=== PATIENT | female | born 1940 | race Two or more races ===

== ENCOUNTER 2017-12-04 14:22 | Emergency (ER) | payer OTHER, MEDICAID ==
[~2017-12-04] VITALS: Ht 152.4 cm; Wt 43.5 kg
[2017-12-04 16:33] LABS: Urine Bacteria NONE SEEN /hpf (None Seen); Urine Blood TRACE /uL (Negative); Urine Specific Gravity 1.024 (1.001-1.035); Urine WBC 1 /hpf (0 - 5)
[2017-12-04 18:21] VITALS: BP 144/74
== END 2017-12-04 19:19 | disposition home or self-care (01) ==
LOC: ER 14:28
DX: N39.0 Urinary tract infection, site not specified (principal)
CPT/HCPCS: 81001

== ENCOUNTER 2020-04-15 15:45 | Inpatient (IN) | payer OTHER, MEDICAID ==
[~2020-04-15] VITALS: Ht 152.4 cm; Wt 42.6 kg
[2020-04-15] MEDS ORDERED: SODIUM CHLORIDE 0.9% 500 ML IVB ONE (18:15)
[2020-04-15] MEDS ORDERED: NITROGLYCERIN 0.4 MG SL TAB SL PRN (21:15)
[2020-04-15] MEDS ORDERED: MORPHINE SULFATE INJECTION 2 MG/ML SYRG IV PRN (21:15)
[2020-04-15 21:24] LABS: Basophils # (auto) 0 10 ^3/uL (0-0.2); Basophils % (auto) 0.1 % (0.0-2.0); Eosinophils # (auto) 0 10 ^3/uL (0-0.8); Hematocrit 33.5 % (36.0-46.0); Hemoglobin 11.3 g/dL (12.2-16.2); Lymphocytes # (auto) 0.3 10 ^3/uL (0.4-5.4); Lymphocytes % (auto) 2.2 % (10.0-50.0); Mean Corpuscular Hemoglobin 30.5 pg (28.0-32.0); Mean Corpuscular Hgb Conc. 33.7 g/dL (32.0-36.0); Mean Corpuscular Volume 90.7 fL (80.0-100.0); Monocytes # (auto) 0.7 10 ^3/uL (0-1.3); Monocytes % (auto) 4.9 % (0.0-12.0); Neutrophils # (auto) 13.2 10 ^3/uL (1.6-8.6); Neutrophils % (auto) 92.8 % (37.0-80.0); White Blood Cell 14.2 10^3/uL (4.4-10.8)
[2020-04-15] MEDS ORDERED: SOD CHL 0.45% 1,000 ML IV ONE (21:30)
[2020-04-15] MEDS ORDERED: ONDANSETRON HCL 4 MG/2 ML VIAL IV PRN (21:30)
[2020-04-15 21:31] LABS: Albumin 3.3 g/dL (3.4-5.0); Anion Gap 5 (5-15); Blood Urea Nitrogen 25 mg/dL (7-18); Calcium 8.4 mg/dL (8.5-10.1); Carbon Dioxide 26 mmol/L (21-32); Chloride 110 mmol/L (98-107); Glucose 142 mg/dL (74-106); Potassium 4.3 mmol/L (3.5-5.1); Sodium 141 mmol/L (136-145)
[2020-04-15 21:49] LABS: Alanine Aminotransferase 58 U/L (13-56); Alkaline Phosphatase 111 U/L (45-117); Aspartate Aminotransferase 57 U/L (15-37); BUN/Creatinine Ratio 40.3; Bilirubin, Total 0.3 mg/dL (0.2-1.0); GFR African American 119 mL/min; GFR Non-African American 98 mL/min; Total Protein 6.3 g/dL (6.4-8.2)
[2020-04-15 22:03] LABS: INR 1.05 (0.9-1.15); Partial Thromboplastin Time 23.3 sec (23.0-31.2)
[2020-04-16] MEDS: MORPHINE SULFATE INJECTION 2 MG/ML SYRG IV PRN (00:34)
[2020-04-16 07:56] LABS: Basophils # (auto) 0 10 ^3/uL (0-0.2); Basophils % (auto) 0.3 % (0.0-2.0); Eosinophils # (auto) 0 10 ^3/uL (0-0.8); Eosinophils % (auto) 0.1 % (0.0-7.0); Hemoglobin 11.4 g/dL (12.2-16.2); Lymphocytes # (auto) 0.8 10 ^3/uL (0.4-5.4); Lymphocytes % (auto) 7.6 % (10.0-50.0); Mean Corpuscular Hemoglobin 31.3 pg (28.0-32.0); Mean Corpuscular Hgb Conc. 34.6 g/dL (32.0-36.0); Mean Corpuscular Volume 90.5 fL (80.0-100.0); Monocytes # (auto) 0.6 10 ^3/uL (0-1.3); Monocytes % (auto) 5.8 % (0.0-12.0); Neutrophils # (auto) 8.5 10 ^3/uL (1.6-8.6); Neutrophils % (auto) 86.2 % (37.0-80.0); Red Blood Cells 3.65 10^6/uL (4.0-5.20); White Blood Cell 9.9 10^3/uL (4.4-10.8)
[2020-04-16 08:16] LABS: Albumin 3.2 g/dL (3.4-5.0); Calcium 8.4 mg/dL (8.5-10.1); Potassium 4.5 mmol/L (3.5-5.1)
[2020-04-16 08:27] LABS: BUN/Creatinine Ratio 29.2; Bilirubin, Total 0.6 mg/dL (0.2-1.0); Total Protein 6.6 g/dL (6.4-8.2)
[2020-04-16] MEDS ORDERED: SUCCINYLCHOLINE CHLORIDE 20 MG/ML 10ML VIAL IV ONE (11:03)
[2020-04-16] MEDS ORDERED: ceFAZolin 1GM/50ML 50 ML IV ONE (11:34)
[2020-04-16] MEDS ORDERED: MIDAZOLAM HCL 2MG/2ML 2ml VIAL (1mg/ml) ONE (11:56)
[2020-04-16] MEDS ORDERED: ETOMIDATE (2MG/ML) 20ML VIAL IV ONE (11:57)
[2020-04-16] MEDS ORDERED: ROCURONIUM 10MG/ML 10ML VIAL IV ONE (11:58)
[2020-04-16] MEDS ORDERED: fentaNYL CITRATE 100 MCG/2 ML VL ONE (12:21)
[2020-04-16] MEDS ORDERED: ONDANSETRON HCL 4 MG/2 ML VIAL IV PRN (12:30)
[2020-04-16] MEDS ORDERED: HYDROmorphone HCL 2 MG/ML VL IV PRN (12:30)
[2020-04-16] MEDS ORDERED: NALOXONE HCL 0.4 MG/ML VIAL IV PRN (12:30)
[2020-04-16] MEDS ORDERED: STERILE WATER 10 ML ONE (12:54)
[2020-04-16] MEDS ORDERED: ePHEDrine SULFATE 50 MG/ML AMP ONE (12:54)
[2020-04-16] MEDS ORDERED: BUPIVACAINE 0.25% INJ 50ML VIAL ONE (13:00)
[2020-04-16] MEDS ORDERED: GLYCOPYRROLATE 0.2 MG/ML 1ML VIAL ONE (13:11)
[2020-04-16] MEDS ORDERED: NEOSTIGMINE 1 MG/ML INJ (10mg/10ML VIAL) ONE (13:11)
[2020-04-16] MEDS ORDERED: HYDROmorphone HCL 2 MG/ML VL ONE (15:49)
[2020-04-16] MEDS: ceFAZolin 1GM/50ML 50 ML IV SCH ×2 (16:20→18:59)
[2020-04-16] MEDS: LACTATED RINGER'S 1,000 ML IV SCH ×2 (18:03→23:15)
[2020-04-16 22:00] VITALS: BP 108/69
[2020-04-17] MEDS: ceFAZolin 1GM/50ML 50 ML IV SCH (00:35)
[2020-04-17 09:00] VITALS: BP 112/56
[2020-04-17] MEDS: LACTATED RINGER'S 1,000 ML IV SCH ×2 (09:15→19:15)
[2020-04-17] MEDS: ENOXAPARIN SOD 40 MG/0.4 ML SYRINGE SC SCH (10:16)
[2020-04-17] MEDS: MORPHINE SULFATE INJECTION 2 MG/ML SYRG IV PRN ×2 (10:28→18:56)
[2020-04-17 10:33] LABS: Hematocrit 26.9 % (36.0-46.0); Hemoglobin 9.1 g/dL (12.2-16.2)
[2020-04-17 10:38] LABS: Albumin 2.7 g/dL (3.4-5.0); Calcium 8.3 mg/dL (8.5-10.1); Potassium 4.2 mmol/L (3.5-5.1)
[2020-04-17 10:42] LABS: BUN/Creatinine Ratio 24.5; Bilirubin, Total 0.6 mg/dL (0.2-1.0); Total Protein 6.1 g/dL (6.4-8.2)
[2020-04-17 13:00] VITALS: BP 111/65
[2020-04-17 17:00] VITALS: BP 115/70
[2020-04-17 22:00] VITALS: BP 110/69
[2020-04-18] MEDS: LACTATED RINGER'S 1,000 ML IV SCH ×2 (04:50→15:15)
[2020-04-18 05:09] VITALS: BP 106/70
[2020-04-18 06:02] LABS: Hematocrit 23.1 % (36.0-46.0); Hemoglobin 7.9 g/dL (12.2-16.2)
[2020-04-18] MEDS: ENOXAPARIN SOD 40 MG/0.4 ML SYRINGE SC SCH (09:35)
[2020-04-18] MEDS: MORPHINE SULFATE INJECTION 2 MG/ML SYRG IV PRN (09:35)
[2020-04-18 17:00] VITALS: BP 104/61
[2020-04-18 22:00] VITALS: BP 115/50
[2020-04-18] MEDS ORDERED: LACTULOSE 20Gm/30ML SOLN PO ONE (22:00)
[2020-04-19] MEDS: LACTATED RINGER'S 1,000 ML IV SCH (01:06)
[2020-04-19] MEDS: MORPHINE SULFATE INJECTION 2 MG/ML SYRG IV PRN (05:12)
[2020-04-19 05:55] VITALS: BP 113/62
[2020-04-19 06:05] LABS: Hemoglobin 7.2 g/dL (12.2-16.2)
[2020-04-19] MEDS: ENOXAPARIN SOD 30 MG/0.3 ML SYRINGE SC SCH (08:50)
[2020-04-19] MEDS ORDERED: FER325T PO (09:23)
[2020-04-19] MEDS ORDERED: ASCO500T11 PO (09:23)
[2020-04-19] MEDS ORDERED: ENOXAPARIN SOD 30 MG/0.3 ML SYRINGE SC SCH (10:00)
[2020-04-19] MEDS: FERROUS SULFATE 325mg EC TAB PO SCH ×3 (11:15→21:38)
[2020-04-19] MEDS: ASCORBIC ACID 500 MG TAB PO SCH ×2 (11:15→21:38)
[2020-04-19 17:00] VITALS: BP 96/56
[2020-04-19 17:36] LABS: Basophils # (auto) 0 10 ^3/uL (0-0.2); Eosinophils # (auto) 0.1 10 ^3/uL (0-0.8); Eosinophils % (auto) 1.4 % (0.0-7.0); Hemoglobin 7.8 g/dL (12.2-16.2); Lymphocytes # (auto) 1.2 10 ^3/uL (0.4-5.4); Lymphocytes % (auto) 14.5 % (10.0-50.0); Monocytes # (auto) 0.6 10 ^3/uL (0-1.3)
[2020-04-19 17:38] LABS: Basophils % (auto) 0.5 % (0.0-2.0); Hematocrit 22.8 % (36.0-46.0); Monocytes % (auto) 7.3 % (0.0-12.0); Neutrophils # (auto) 6.3 10 ^3/uL (1.6-8.6); Neutrophils % (auto) 76.3 % (37.0-80.0); Red Blood Cells 2.51 10^6/uL (4.0-5.20); Red Cell Distribution Width 13.5 % (11.8-14.3); White Blood Cell 8.3 10^3/uL (4.4-10.8)
[2020-04-19 17:47] LABS: % Iron Saturation 29.7 % (15-50)
[2020-04-19 22:00] VITALS: BP 122/64
[2020-04-20 05:00] VITALS: BP 117/58
[2020-04-20] MEDS: FERROUS SULFATE 325mg EC TAB PO SCH ×2 (06:22→14:00)
[2020-04-20 08:00] VITALS: BP 111/59
[2020-04-20 09:00] VITALS: BP 111/59
[2020-04-20] MEDS: ENOXAPARIN SOD 30 MG/0.3 ML SYRINGE SC SCH (09:37)
[2020-04-20] MEDS: ASCORBIC ACID 500 MG TAB PO SCH (09:37)
[2020-04-20 10:19] LABS: Basophils # (auto) 0 10 ^3/uL (0-0.2); Eosinophils # (auto) 0.2 10 ^3/uL (0-0.8); Hemoglobin 7.8 g/dL (12.2-16.2); Mean Corpuscular Volume 91.5 fL (80.0-100.0); Monocytes # (auto) 0.6 10 ^3/uL (0-1.3); White Blood Cell 7.5 10^3/uL (4.4-10.8)
[2020-04-20 10:23] LABS: Basophils % (auto) 0.5 % (0.0-2.0); Hematocrit 22.8 % (36.0-46.0); Lymphocytes # (auto) 0.7 10 ^3/uL (0.4-5.4); Lymphocytes % (auto) 8.7 % (10.0-50.0); Mean Corpuscular Hemoglobin 31.4 pg (28.0-32.0); Mean Corpuscular Hgb Conc. 34.3 g/dL (32.0-36.0); Monocytes % (auto) 8.5 % (0.0-12.0); Neutrophils % (auto) 80.3 % (37.0-80.0); Red Blood Cells 2.49 10^6/uL (4.0-5.20); Red Cell Distribution Width 13.4 % (11.8-14.3)
[2020-04-20 11:30] LABS: Potassium 4.3 mmol/L (3.5-5.1)
[2020-04-20 11:44] LABS: Albumin 2.5 g/dL (3.4-5.0); BUN/Creatinine Ratio 29.2; Calcium 8.9 mg/dL (8.5-10.1)
[2020-04-20 11:47] LABS: Bilirubin, Total 0.7 mg/dL (0.2-1.0)
[2020-04-20 12:00] VITALS: BP 114/65
[2020-04-20 17:00] VITALS: BP 130/63
[2020-04-22] MEDS ORDERED: HYDR-4833 PO ×2 (08:51→08:53)
== END 2020-04-20 19:00 | disposition home health service (06) | DRG 481 ==
LOC: ER 15:45 → EDBD 15:45 → OVERFLOW 15:46 → CENTRAL 04-16 17:37
PROVIDERS: ADMIT Internal Medicine; ATTEND Internal Medicine
PROC: 0QS636Z Reposition Right Upper Femur with Intramedullary Internal Fixation Device, Percutaneous Approach (ICD-10-PCS; principal; 2020-04-16 12:00)
DX: S72.141A Displaced intertrochanteric fracture of right femur, initial encounter for closed fracture (principal); E44.1 Mild protein-calorie malnutrition; D64.9 Anemia, unspecified; W18.39XA Other fall on same level, initial encounter; Y93.89 Activity, other specified; Y92.098 Other place in other non-institutional residence as the place of occurrence of the external cause; Z20.822 Contact with and (suspected) exposure to COVID-19
CPT/HCPCS: 36415; 71045; 71250; 73020; 73070; 73501; 73502; 76001; 80053; 83540; 83550; 83735; 84484; 85014; 85018; 85025; 85610; 85730; 86850; 86900; 86901; 87426; 93005; 96361; 96374; 97110; 97116; 97530; C1713; G0378; J0330; J0690; J2250; J2405; J3490